=== PATIENT | female | born 1980 | race Caucasian/White ===

== ENCOUNTER 2018-04-29 13:35 | Day surgery (SDC) | payer BC ==
[2018-04-29] MEDS ORDERED: FENTAnyl 50 MCG/ML VIAL (17:19)
[2018-04-29] MEDS ORDERED: MIDAZOLAM 1 MG/ML 2 ML INJ ×4 (17:19→17:21)
== END 2018-04-29 15:17 | disposition home or self-care (01) ==
LOC: GIL 13:35
DX: K92.1 Melena (principal); D12.5 Benign neoplasm of sigmoid colon; K60.2 Anal fissure, unspecified; K20.9 Esophagitis, unspecified; K29.70 Gastritis, unspecified, without bleeding
CPT/HCPCS: 43239; 84703; 88305; 88312